=== PATIENT | male | born 1980 | race Caucasian/White ===

== ENCOUNTER 2017-03-30 05:03 | Emergency (ER) | payer OTHER ==
[~2017-03-30] VITALS: Ht 175.3 cm; Wt 72.6 kg
[2017-03-30 05:50] VITALS: BP 119/71
--- NOTE | 2017-03-30 06:11 | PHYS DOC ---
Past Medical History Past Medical History: Anxiety, Depression Past Surgical History: Other Additional Past Surgical Histo: RIGHT KNEE RECONSTRUCTION 1995 Additional Information: 0.5 PK/DAY SMOKER Alcohol Use: Occasionally Drug Use: None Adult General Chief Complaint Chief Complaint: ABSCESS HPI HPI Patient is a 37 year old male who has a pilonidal abscess that has been cut multiple times however he is never seen a surgeon to get it removed. Patient says sometimes it drains on its own that he has not been able to sleep due to the pain. No fevers chills or other systemic symptoms. Review of Systems Review of Systems Constitutional: Denies fever or chills [] Integument: + abscess Current Medications Current Medications Current Medications Medications (Trade) Dose Ordered Sig/Angela Start Time Stop Time Status Last Admin Dose Admin Lidocaine/ Epinephrine (Xylocaine 1%-Epi 1:200,000) 30 ml 1X ONCE 03/30/17 06:15 03/30/17 06:15 DC Lidocaine/ Epinephrine (Xylocaine 2%-Epi 1:100,000) 20 ml 1X ONCE 03/30/17 06:30 03/30/17 06:31 03/30/17 06:20 20 ML Allergies Allergies Allergies Coded Allergies Type Severity Reaction Last Updated Verified No Known Drug Allergies 03/30/17 No Physical Exam Physical Exam Constitutional: Well developed, well nourished, no acute distress, non-toxic appearance. [] Skin: Approximate 4 x 4 centimeters abscess just left of midline Current Patient Data Vital Signs Vital Signs Date Time Temp Pulse Resp B/P (MAP) Pulse Ox O2 Delivery O2 Flow Rate FiO2 03/30/17 05:50 98.6 103 20 98 Room Air 98.6 EKG EKG [] Radiology/Procedures Radiology/Procedures Indication: abscess Procedure: The patient was positioned appropriately. Local anesthesia approximate 8 mL of 2% lidocaine with epinephrine injected into the wound. A 2 cm incision was then made over the apex of the lesion and large amount of purulent material was expressed. The cavity was probed and multiple directions to break up all loculations. The drainage cavity was irrigated and packed with sterile gauze. The patients tetanus status updated as needed. The patient tolerated the procedure well. Complications: none.[] Course & Med Decision Making Course & Med Decision Making Pilonidal abscess that I told him could be fitted we treated if he follows with a surgeon. He says that he has good insurance I recommended that he try and do by the end of the year. There is a small cellulitis component to it so put him on a short course of Bactrim give him pain medicines and have him come back with any concerns otherwise can follow with his PCP in 2 days for wound reevaluation or come back here. Patient aware and agreeable with plan and verbalized understanding of the above instructions. Dragon Disclaimer Dragon Disclaimer This electronic medical record was generated, in whole or in part, using a voice recognition dictation system. Departure Departure Impression: Primary Impression: Pilonidal abscess Disposition: HOME, SELF-CARE Condition: STABLE Referrals: APPLE GALARZA MD Patient Instructions: Pilonidal Cyst Scripts Sulfamethoxazole/Trimethoprim (BACTRIM 400-80 MG TABLET) 1 Each Tablet 1 TAB PO BID, #10 TAB Prov: GENA CRAIN DO 03/30/17 Hydrocodone/Apap 5-325 (NORCO 5-325 TABLET) 1 Each Tablet 1 TAB PO PRN Q6HRS Y for PAIN, #14 TAB 0 Refills Prov: GENA CRAIN DO 03/30/17 GENA CRAIN DO Mar 30, 2017 06:11
[2017-03-30] MEDS ORDERED: LIDOCAINE 1%/EPI 1:200,000 30 ML VIAL. INJ ONE (06:15)
[2017-03-30] MEDS ORDERED: LIDOCAINE 2%/EPI 1:100,000 20 ML VIAL. IJ ONE (06:30)
[2017-03-30] MEDS ORDERED: HYDR-971 PO (06:35)
[2017-03-30] MEDS ORDERED: SULF1TAB23 PO (06:35)
== END 2017-03-30 06:40 | disposition home or self-care (01) ==
LOC: ER 05:03
DX: L05.01 Pilonidal cyst with abscess (principal); F41.9 Anxiety disorder, unspecified; F32.9 Major depressive disorder, single episode, unspecified; F17.200 Nicotine dependence, unspecified, uncomplicated
CPT/HCPCS: 10080; 99284; J3490

== ENCOUNTER 2017-08-22 14:25 | Emergency (ER) | payer OTHER | END 2017-08-22 14:47 | disposition home or self-care (01) | LOC: ER 14:25 | DX: S46.911A Strain of unspecified muscle, fascia and tendon at shoulder and upper arm level, right arm, initial encounter (principal); F41.9 Anxiety disorder, unspecified; F32.9 Major depressive disorder, single episode, unspecified; W19.XXXA Unspecified fall, initial encounter; Y93.89 Activity, other specified; Y99.8 Other external cause status; Y92.89 Other specified places as the place of occurrence of the external cause | CPT/HCPCS: 99281 ==

== ENCOUNTER 2017-08-26 14:12 | Emergency (ER) | payer OTHER | END 2017-08-26 14:37 | disposition home or self-care (01) | LOC: ER 14:12 | DX: M54.6 Pain in thoracic spine (principal); F32.9 Major depressive disorder, single episode, unspecified; F41.9 Anxiety disorder, unspecified; Z96.651 Presence of right artificial knee joint | CPT/HCPCS: 99283 ==

== ENCOUNTER 2020-06-30 15:26 | Emergency (ER) | payer SELFPAY ==
[~2020-06-30] VITALS: Ht 175.3 cm; Wt 77.0 kg
[~2020-06-30 15:26] MED LIST: CYCL10TA2 PO; HYDR-3164 PO; SULF1TAB23 PO; TRAM1TAB4 PO
[2020-06-30 15:35] VITALS: BP 133/74
[2020-06-30] MEDS ORDERED: LIDOCAINE 2%/EPI 1:100,000 20 ML VIAL. INJ ONE (17:00)
[2020-06-30] MEDS ORDERED: HYDR-2761 PO (18:00)
[2020-06-30] MEDS ORDERED: CLIN150C15 PO (18:00)
--- NOTE | 2020-06-30 18:01 | ED.ADGEN ---
Past Medical History Past Medical History: Other Additional Past Medical Histor: PTSD, abscesses Past Surgical History: No Surgical History Additional Past Surgical Histo: RIGHT KNEE RECONSTRUCTION 1995 Smoking Status: Current Every Day Smoker Alcohol Use: None Drug Use: None General Adult EDM: Chief Complaint: ABSCESS HPI: HPI: Patient is a 40 year old male, accompanied by his , who presents emergency department with complaints of a swollen, painful abscess to his left buttock for the last week. Patient reports he has a history of these types of abscesses and usually he is able to get them to drain on his own. Patient reports he has tried Epson salt soaks and applying heat with no resolution of symptoms. Denies any drainage or bleeding from the site. Patient denies any fever, cough, body aches, chest pain, abdominal pain, nausea, vomiting, diarrhea, fatigue, or rash. He denies any bloody stools or blood in his urine. Patient currently rates his pain a 10 out of 10 on pain scale, he denies any alleviating factors, the pain is worse with pressure or touch. Review of Systems: Review of Systems: Complete ROS is negative unless otherwise noted in HPI. Current Medications: Current Medications Medications (Trade) Dose Ordered Sig/Angela Start Time Stop Time Status Last Admin Dose Admin Lidocaine/ Epinephrine (LIDOCAINE 2%-EPI 1:100,000 multi-dose) 20 ml 1X ONCE 06/30/20 17:00 06/30/20 17:01 HI Allergies: Allergies: Allergies Coded Allergies Type Severity Reaction Last Updated Verified No Known Drug Allergies 03/30/17 No Physical Exam: PE: See Above constitutional: Well developed, well nourished, no acute distress, non-toxic appearance. [] HENT: Normocephalic, atraumatic, bilateral external ears normal, nose normal. [] Eyes: PERRLA, EOMI, conjunctiva normal, no discharge. [] Neck: Normal range of motion, no stridor. [] Cardiovascular:Heart rate regular rhythm Lungs & Thorax: Respirations even and unlabored, no retractions, no respiratory distress Abdomen: soft, no tenderness Skin: Warm, dry; left buttock approximately 3 cm diameter area of erythema with central fluctuance noted to left buttock near the gluteal fold, appears to be a cutaneous abscess, no drainage, no bleeding Extremities: No cyanosis, ROM intact, no edema. [] Neurologic: Alert and oriented X 3, no focal deficits noted. [] Psychologic: Affect normal, judgement normal, mood normal. [] Current Patient Data: Vital Signs: Vital Signs Date Time Temp Pulse Resp B/P (MAP) Pulse Ox O2 Delivery O2 Flow Rate FiO2 06/30/20 15:35 98.6 101 16 133/74 (93) 98 Room Air 98.6 EKG: EKG: [] Heart Score: C/O Chest Pain: No Risk Factors: Risk Factors: DM, Current or recent (<one month) smoker, HTN, HLP, family history of CAD, obesity. Risk Scores: Score 0 - 3: 2.5% MACE over next 6 weeks - Discharge Home Score 4 - 6: 20.3% MACE over next 6 weeks - Admit for Clinical Observation Score 7 - 10: 72.7% MACE over next 6 weeks - Early Invasive Strategies Radiology/Procedures: Radiology/Procedures: Indication: abscess Procedure: The patient was positioned appropriately. Local anesthesia was 2% lidocaine with epinephrine. An incision was then made over the apex of the lesion and large purulent material was expressed. The drainage cavity was packed with sterile iodoform, gauze. The patients tetanus status was less than 5 years ago. The patient tolerated the procedure well. Complications: none.[] Course & Med Decision Making: Course & Med Decision Making Pertinent Labs and Imaging studies reviewed. (See chart for details) [] Dragon Disclaimer: Dragon Disclaimer: This electronic medical record was generated, in whole or in part, using a voice recognition dictation system. Departure Departure Impression: Primary Impression: Abscess of left buttock Disposition: 01 DC HOME SELF CARE/HOMELESS Condition: STABLE Referrals: NO PCP (PCP) Patient Instructions: Abscess, [id number] Additional Instructions: Fill the prescription(s) and use as directed. You may also take ibuprofen as needed for pain. Leave the Dressing that was placed in the ER in place for the next 24 hours, then change the dressing twice daily and apply antibiotic ointment as needed. Apply warm, moist packs to the area to help decrease discomfort. Follow up with your primary care doctor or return to the ER in 48 hours to have wound rechecked. Return to the ER sooner if your symptoms worsen or fever develops. [facility] [address] [id number] [facility] [address] [place] [address] [facility] [address] [place] [address] [facility] [address] [place] [address] [facility] [address] [place] [address] [facility] [address] [place] [address] [facility] [address] [place] [address] [facility] [address] [place] [address] [facility] [address] [place] [address] [facility] [address] [place] [address] Scripts Hydrocodone Bit/Acetaminophen (HYDROCODONE-APAP 5-325 ) 1 Tab Tablet 1 TAB PO PRN Q6HRS PRN for PAIN for 3 Days, #12 TAB 0 Refills Prov: COLTON HART [employer]CH[employer]ICIAN 06/30/20 Clindamycin Hcl (CLINDAMYCIN HCL) 150 Mg Capsule 450 MG PO TID for 7 Days, #63 CAP 0 Refills Prov: COLTON HART APRN 06/30/20 COLTON HART [employer] TECHNICIAN Jun 30, 2020 18:01
== END 2020-06-30 18:20 | disposition home or self-care (01) ==
LOC: ER 15:26
DX: L02.31 Cutaneous abscess of buttock (principal); F17.200 Nicotine dependence, unspecified, uncomplicated
CPT/HCPCS: 10060; 99283